=== PATIENT | female | born 1980 | race Caucasian/White ===

== ENCOUNTER → 2017-07-26 | Outpatient (CLI) | payer BC ==
--- NOTE | 2017-07-29 07:36 | MM ---
Reason for exam: additional evaluation requested from prior study. Last mammogram was performed 1 year and 3 months ago. History: Patient is nulliparous. Family history of breast cancer in grandmother. Benign US biopsy breast VAD LT of the left breast, April 25, 2016. Benign excisional biopsy of the left breast, April 04, 2006. Taking hormonal contraceptives for 8 years beginning at age 17. Physical Findings: Nurse Summary: 1cm, 0.5cm and 1cm nodule in the right breast at 9 o'clock, 10 o'clock and 12 o'clock and a 1cm nodule in the left breast at 11 o'clock, 1 o'clock, 3 o'clock and 4 o'clock (nurse dw). MG Diagnostic Mammo w CAD [facility]MAINE Bilateral CC and MLO view(s) were taken. Prior study comparison: April 25, 2016, left breast MG diagnostic mammo LT wo CAD. September 19, 2015, bilateral MG 3d diag mammo w/cad CHARMAINE. The breast tissue is extremely dense which could obscure a lesion on mammography. There are multiple bilateral well circumscribed masses waxing and waning in size. No suspicious abnormality. These results were verbally communicated with the patient and result sheet given to the patient on 07/26/17. ASSESSMENT: Incomplete: need additional imaging evaluation, BI-RAD 0 RECOMMENDATION: Ultrasound of the right breast. (Palpable)
--- NOTE | 2017-07-29 07:48 | USB ---
Reason for exam: additional evaluation requested from abnormal screening. History: Patient is nulliparous. Family history of breast cancer in grandmother. Benign US biopsy breast VAD LT of the left breast, April 25, 2016. Benign excisional biopsy of the left breast, April 04, 2006. Taking hormonal contraceptives for 8 years beginning at age 17. US Breast Limited BILAT Technologist: Libia Mariscal Right breast ultrasound demonstrates a 2.3 x 0.8 x 2.1cm cystic lesion at 10 o'clock and a 2.3 x 1.0 x 1.7cm cystic septated lesion at 1 o'clock. Left breast ultrasound includes all four quadrants, the retroareolar region and axilla. Finding demonstrates a 3.4 x 0.7 x 2.0cm cystic cluster at 12 o'clock, a 3.4 x 1.3 x 3.7cm cystic cluster at 2 o'clock, a 2.4 x 0.9 x 2.0cm cystic lesion at 4 o'clock, a 0.7 x 0.5 x 0.5cm cystic lesion at 5 o'clock, a 1.0 x 0.6 x 1.2cm lesion at 12 o'clock and a cyst with debris ribbon clip at 1 o'clock. These results were verbally communicated with the patient and result sheet given to the patient on 07/26/17. ASSESSMENT: Benign, BI-RAD 2 RECOMMENDATION: Routine screening mammogram of both breasts at age 38.
== END ==
LOC: RADMAMWWP 14:21
PROVIDERS: ATTEND Family Medicine
DX: R92.8 Other abnormal and inconclusive findings on diagnostic imaging of breast (principal)
CPT/HCPCS: 76642; G0204

== ENCOUNTER → 2019-05-07 | Outpatient (CLI) | payer BC ==
--- NOTE | 2019-05-08 07:25 | US ---
EXAMINATION TYPE: US transvaginal DATE OF EXAM: 05/07/2019 COMPARISON: NONE CLINICAL HISTORY: Z00.7 abnormal periods. Heavy abnormal periods. TECHNIQUE: Transvaginal (TV EXAM MEASUREMENTS: Uterus: 8.2 x 3.7 x 4.6 cm Endometrial Stripe: 0.7 cm Right Ovary: 3.4 x 2.4 x 4.6 cm Left Ovary: 2.9 x 1.6 x 2.5 cm 1. Uterus: Anteverted wnl 2. Endometrium: wnl 3. Right Ovary: Simple anechoic cyst measuring 2.0 x 2.1 x 2.4 cm. No internal septations or mural nodules. 4. Left Ovary: Follicles seen. 5. Bilateral Adnexa: wnl 6. Posterior cul-de-sac: wnl IMPRESSION: 1. Endometrial thickness is within normal limits in this patient with dysmenorrhea. 2. Incidentally noted simple appearing 2 cm right ovarian cyst. Consensus criteria does not recommend follow-up in a premenopausal female for simple cysts of this size.
== END | disposition home or self-care (01) ==
LOC: RADUSWWP 16:45
PROVIDERS: ATTEND Family Medicine
DX: Z00.71 Encounter for examination for period of delayed growth in childhood with abnormal findings (principal); N94.6 Dysmenorrhea, unspecified; N83.201 Unspecified ovarian cyst, right side
CPT/HCPCS: 76830

== ENCOUNTER → 2019-06-24 | Outpatient (CLI) | payer BC ==
--- NOTE | 2019-06-24 10:35 | USB ---
Reason for exam: clinical finding. History: Patient is nulliparous. Family history of breast cancer in grandmother. Benign US biopsy breast VAD LT of the left breast, April 25, 2016. Benign excisional biopsy of the left breast, April 04, 2006. Taking hormonal contraceptives for 8 years beginning at age 17. Indicated problem(s): palpable abnormality in the right breast. Physical Findings: Nurse Summary: right breast palpables, all tender, movable, largest upper outer quadrant 3 x 4cm, 1 x 1cm, 1.5 x 1cm, left breast palpable 1 x 1.5cm x 3 (nurse ts). US Breast Limited RT Right complete breast ultrasound includes all four quadrants, the retroareolar region and axilla. Finding demonstrates a 0.8 x 0.5 x 0.7cm cystic lesion at 12 o'clock, a 0.9 x 0.8 x 0.7cm cystic lesion at 12 o'clock, a 1.7 x 1.3 x 1.7cm cystic lesion at 12 o'clock, a 2.5 x 0.7 x 2.0cm cystic lesion at 3 o'clock, a 1.2 x 0.6 x 1.6cm mixed lesion, complicated cyst at 6 o'clock, a 1.6 x 0.8 x 1.6cm mixed lesion, complicated cyst at 7 o'clock, a 1.9 x 1.1 x 1.9cm mixed, cystic lesion at 10 o'clock, a 2.8 x 1.6 x 3.2cm cystic lesion at 10 o'clock and a 1.6 x 2.0 x 1.0cm cystic lesion at 11 o'clock. These results were verbally communicated with the patient and result sheet given to the patient on 06/24/19. ASSESSMENT: Incomplete: need additional imaging evaluation, BI-RAD 0 RECOMMENDATION: Follow-up diagnostic mammogram of both breasts. (left pain)
--- NOTE | 2019-06-24 10:39 | MM ---
Reason for exam: clinical finding. Last mammogram was performed 1 year and 11 months ago. History: Patient is nulliparous. Family history of breast cancer in grandmother. Benign US biopsy breast VAD LT of the left breast, April 25, 2016. Benign excisional biopsy of the left breast, April 04, 2006. Taking hormonal contraceptives for 8 years beginning at age 17. MG Diagnostic Mammo w CAD [facility]MAINE Bilateral CC and MLO view(s) were taken. Prior study comparison: July 26, 2017, bilateral MG diagnostic mammo w CAD CHARMAINE. July 26, 2017, bilateral US breast limited BILAT. April 25, 2016, left breast MG diagnostic mammo LT wo CAD. The breast tissue is extremely dense which could obscure a lesion on mammography. There are benign appearing round oval circumscribed masses bilaterally, demonstrated as cysts on the ultrasound of the same date. Benign appearing diffuse bilateral calcifications similar to 2017. No suspicious abnormality. No significant new findings when compared with previous films. These results were verbally communicated with the patient and result sheet given to the patient on 06/24/19. ASSESSMENT: Benign, BI-RAD 2 RECOMMENDATION: Routine screening mammogram of both breasts in 1 year. Manage patient on a clinical basis. Aspiration of the painful right breast cyst at 10 o'clock could be considered for symptomatic relief.
== END ==
LOC: RADUSWWP 07:35
PROVIDERS: ATTEND Internal Medicine Endocrinology, Diabetes & Metabolism
DX: R92.8 Other abnormal and inconclusive findings on diagnostic imaging of breast (principal)
CPT/HCPCS: 77066

== ENCOUNTER → 2021-05-01 | Outpatient (CLI) | payer BC ==
--- NOTE | 2021-05-02 11:20 | MM ---
Reason for exam: screening (asymptomatic). Last mammogram was performed 1 year and 10 months ago. History: Patient is nulliparous. Family history of breast cancer in grandmother. Benign US biopsy breast VAD LT of the left breast, April 25, 2016. Benign excisional biopsy of the left breast, April 04, 2006. Took hormonal contraceptives for 8 years beginning at age 17. Physical Findings: A clinical breast exam by your physician is recommended on an annual basis and results should be correlated with mammographic findings. MG Screening Mammo w CAD Bilateral CC and MLO view(s) were taken. Prior study comparison: June 24, 2019, bilateral MG diagnostic mammo w CAD CHARMAINE. July 26, 2017, bilateral MG diagnostic mammo w CAD CHARMAINE. The breast tissue is extremely dense which could obscure a lesion on mammography. There are scattered calcifications bilaterally. Left biopsy clip. ASSESSMENT: Benign, BI-RAD 2 RECOMMENDATION: Routine screening mammogram of both breasts in 1 year.
== END | disposition home or self-care (01) ==
LOC: RADMAMWWP 02-24 13:51
PROVIDERS: ATTEND Family Medicine
DX: Z12.31 Encounter for screening mammogram for malignant neoplasm of breast (principal); Z80.3 Family history of malignant neoplasm of breast
CPT/HCPCS: 77067